=== PATIENT | male | born 1955 | race Caucasian/White ===

== ENCOUNTER → 2016-04-20 | Outpatient (CLI) | payer OTHER ==
[2016-04-20 11:13] LABS: HEMOGLOBIN A1C 8.03 % (4.2-6.0); MEAN BLOOD GLUCOSE (CALC) 181.399 mg/dL
[2016-04-20 11:19] LABS: BILIRUBIN,TOTAL 0.7 mg/dL (0.3-1.2); BUN/CREATININE RATIO 9.73 (6-20); CREATININE 7.6 mg/dL (0.70-1.50); LDL CHOLESTEROL,CALCULATED 122.8 mg/dL; POTASSIUM 4.4 meq/L (3.8-5.2); TOTAL PROTEIN 7.8 g/dL (6.1-8.0)
[2016-04-22 13:45] LABS: PARATHYROID HORMONE 247 pg/mL (15-65)
== END ==
LOC: LAB 10:46
PROVIDERS: ATTEND Internal Medicine
DX: E11.9 Type 2 diabetes mellitus without complications (principal); Z79.4 Long term (current) use of insulin; I12.9 Hypertensive chronic kidney disease with stage 1 through stage 4 chronic kidney disease, or unspecified chronic kidney disease; N18.4 Chronic kidney disease, stage 4 (severe); E78.5 Hyperlipidemia, unspecified; N25.81 Secondary hyperparathyroidism of renal origin; Z99.2 Dependence on renal dialysis
CPT/HCPCS: 36415; 80053; 80061; 82550; 83036; 83970; 84100; 99214; G0463

== ENCOUNTER → 2016-08-06 | Outpatient (CLI) | payer OTHER ==
[2016-08-06 08:45] LABS: HEMOGLOBIN A1C 6.61 % (4.2-6.0)
[2016-08-06 08:47] LABS: BUN/CREATININE RATIO 9.29 (6-20); CALCIUM 8.2 mg/dL (8.7-10.7); CHOL/HDL RATIO 4.17 RATIO (0-4.0); LDL CHOLESTEROL,CALCULATED 66.8 mg/dL; SERUM ALBUMIN 3.8 g/dL (3.5-4.8)
[2016-08-06 10:32] LABS: CREATININE, URINE 138.7 MG/DL (15-500)
== END ==
LOC: LAB 08:17
PROVIDERS: ATTEND Internal Medicine
DX: E11.9 Type 2 diabetes mellitus without complications (principal); Z79.4 Long term (current) use of insulin; I10 Essential (primary) hypertension; E78.5 Hyperlipidemia, unspecified
CPT/HCPCS: 36415; 80053; 80061; 82043; 82550; 83036; 84100

== ENCOUNTER → 2016-08-07 | Outpatient (CLI) | payer OTHER | LOC: MMPC 11:11 | PROVIDERS: ATTEND Nurse Practitioner | DX: H92.02 Otalgia, left ear (principal); H61.23 Impacted cerumen, bilateral | CPT/HCPCS: 99213; G0463 ==

== ENCOUNTER → 2016-08-14 | Outpatient (CLI) | payer OTHER | LOC: MMPC 11:11 | PROVIDERS: ATTEND Nurse Practitioner | DX: H61.23 Impacted cerumen, bilateral (principal) | CPT/HCPCS: 69209 ×2; 69210 ×2; G0463 ==

== ENCOUNTER → 2016-09-29 | Outpatient (CLI) | payer OTHER ==
[2016-09-29 16:46] LABS: BASOPHILS # (AUTO) 0.04 10*3/UL; BASOPHILS % (AUTO) 0.6 % (0-1); EOSINOPHILS # (AUTO) 0.17 10*3/UL; EOSINOPHILS % (AUTO) 2.7 % (0-8); HEMATOCRIT 40.1 % (42.0-52.0); HEMOGLOBIN 13.6 g/dL (14.0-18.0); LYMPHOCYTES # (AUTO) 1.67 10*3/uL; MEAN CORPUSCULAR HEMOGLOBIN 32.8 PG (27-31); MEAN CORPUSCULAR HGB CONC 33.9 g/dL (33-37); MEAN CORPUSCULAR VOLUME 96.6 FL (80-90); MEAN PLATELET VOLUME 10.3 FL (7.4-12.2); MONOCYTES # (AUTO) 0.97 10*3/UL (0.3-0.8); MONOCYTES % (AUTO) 15.6 % (5-15); NEUTROPHILS # (AUTO) 3.35 10*3/UL; RED BLOOD COUNT 4.15 10^6/uL (4.70-6.10)
[2016-09-29 17:03] LABS: PLATELET MORPHOLOGY COMMENT NORMAL MORPHOLOGY (NORM); RBC MORPHOLOGY COMMENT NORMAL MORPHOLOGY (NORM); WBC MORPHOLOGY COMMENT NORMAL MORPHOLOGY (NORM)
[2016-09-29 17:14] LABS: BUN/CREATININE RATIO 11.52 (6-20); CALCIUM 8.1 mg/dL (8.7-10.7); SERUM ALBUMIN 3.8 g/dL (3.5-4.8)
== END ==
LOC: LAB 05:29
PROVIDERS: ATTEND Internal Medicine
DX: N18.5 Chronic kidney disease, stage 5 (principal); Z79.4 Long term (current) use of insulin; E11.21 Type 2 diabetes mellitus with diabetic nephropathy; E03.9 Hypothyroidism, unspecified; E78.1 Pure hyperglyceridemia; E55.9 Vitamin D deficiency, unspecified; N52.9 Male erectile dysfunction, unspecified; Z99.2 Dependence on renal dialysis
CPT/HCPCS: 36415; 80053; 82306; 83036; 83970; 84100; 84443; 85025; 99214; G0463

== ENCOUNTER → 2016-10-01 | Outpatient (CLI) | payer OTHER | LOC: MMPC 11:11 | PROVIDERS: ATTEND Surgery | DX: N18.6 End stage renal disease (principal) | CPT/HCPCS: 99212; G0463 ==

== ENCOUNTER 2016-10-08 07:17 | Day surgery (SDC) | payer OTHER ==
[~2016-10-08 07:17] MED LIST: LIDOCAINE W/ SODIUM BICARB 0.5 ML SYR ONE; Lactated Ringers 1,000 ML PRIMARY IV ONE
--- NOTE | 2016-10-08 08:25 | GEN.OPNOTE ---
Colonoscopy Procedure Note Surgery Date: 10/08/16 Preoperative Diagnosis: Patient has end-stage renal disease on transplant list needs a screening colonoscopy for colon cancer surveillance Postoperative Diagnosis: Colon polyps at 90, 78, and 60 cm Procedure: Colonoscopy snare polypectomy Surgeon: Wesly Dacosta MD Anesthesia Provider: Glenis Griffiths CRNA Anesthesia Type: MAC Indications: Patient has end-stage renal disease on a transplant waiting list. He needs a screening colonoscopy for colon cancer surveillance prior to his transplants Findings: Prep : Very good Cecum : Scope was advanced all way to the cecum. Ileocecal valve identified. Patient did have some retained liquid stool that was aspirated out. I saw no abnormal pathology of the cecum Ascending : Ascending colon had a sessile polyp easily removed with snare polypectomy. This measured 90 cm Transverse : Transverse colon had 2 polyps removed with snare polypectomy measured 78 and 60 cm Sigmoid : Descending and sigmoid colon free from disease there was a lot of retained liquid stool that was aspirated out as much is good. Therefore small lesions still could be missed Rectum : Internal hemorrhoids otherwise normal rectum Digital Rectal Exam : Prostate smooth no nodules no rectal masses palpated. Patient does have some hemorrhoidal skin tags A lubricated flexible colonoscope was inserted and passed to the blind end of the cecum.
[2016-10-08 08:38] VITALS: RESP 14
[2016-10-08 09:35] VITALS: TEMP 97
== END 2016-10-08 08:55 | disposition home or self-care (01) ==
LOC: SDSC 07:17
PROVIDERS: ATTEND Surgery
DX: Z12.11 Encounter for screening for malignant neoplasm of colon (principal); K63.5 Polyp of colon
CPT/HCPCS: 45385 ×2; J2704; J7120